=== PATIENT | male | born 1980 | race Caucasian/White ===

== ENCOUNTER 2018-01-30 11:02 | Emergency (ER) | payer OTHER ==
[2018-01-30 12:06] LABS: COLOR,URINE RED; GLUCOSE,URINE NEGATIVE (NEG); PROTEIN,URINE 100 mg/dL (NEG-TRACE)
[2018-01-30 12:12] LABS: ADD MAN DIFF? NO
[2018-01-30 12:15] LABS: BASO % 1 % (0-3); EOS % 0 % (0-3); HEMATOCRIT 41.4 % (39.0-53.0); LYMPH # 1.3 x10^3/uL (1.0-4.8); LYMPH % 15 % (24-48); MEAN CORPUSCULAR HEMOGLOBIN 31 pg (25-35); MEAN CORPUSCULAR HGB CONC 34 g/dL (31-37); MEAN CORPUSCULAR VOLUME 91 fL (79-100); MONO # 0.8 x10^3/uL (0.0-1.1); MONO % 9 % (0-9); NEUT # 6.8 x10^3uL (1.8-7.7); NEUT % 76 % (31-73); PLATELET COUNT 247 x10^3/uL (140-400); RED BLOOD COUNT 4.54 x10^6/uL (4.30-5.70); RED CELL DISTRIBUTION WIDTH 13.9 % (11.5-14.5); WHITE BLOOD COUNT 8.9 x10^3/uL (4.0-11.0)
[2018-01-30] MEDS: IV NORMAL SALINE 1000ML BAG 1,000 ML IV (12:21)
[2018-01-30 12:23] LABS: CLARITY,URINE BLOODY
[2018-01-30 12:24] LABS: BACTERIA,URINE 0 /HPF (0-FEW); RBC,URINE TNTC /HPF (0-2); WBC,URINE OCC /HPF (0-4)
[2018-01-30] MEDS: DICYCLOMINE 20 MG/2 ML AMPUL. IM (12:26)
[2018-01-30 12:27] LABS: ANION GAP 9 (6-14); BLOOD UREA NITROGEN 15 mg/dL (8-26); BUN/CREATININE RATIO 13 (6-20); CALCIUM 9.2 mg/dL (8.5-10.1); CARBON DIOXIDE 28 mmol/L (21-32); CHLORIDE 102 mmol/L (98-107); CREATININE 1.2 mg/dL (0.7-1.3); GFR 68.9; GLUCOSE 104 mg/dL (70-99); POTASSIUM 4.1 mmol/L (3.5-5.1); SODIUM 139 mmol/L (136-145)
[2018-01-30 12:30] LABS: ALBUMIN 3.7 g/dL (3.4-5.0); ALK PHOS 85 U/L (46-116); ALT (SGPT) 34 U/L (16-63); AST (SGOT) 27 U/L (15-37); LIPASE 89 U/L (73-393); TOTAL BILIRUBIN 0.4 mg/dL (0.2-1.0); TOTAL PROTEIN 7.4 g/dL (6.4-8.2)
== END 2018-01-30 13:08 | disposition home or self-care (01) ==
LOC: ER 11:02
DX: N20.0 Calculus of kidney (principal); F98.8 Other specified behavioral and emotional disorders with onset usually occurring in childhood and adolescence
CPT/HCPCS: 36415; 74176; 80053; 81001; 83690; 85025; 96372; 99285-25; J0500; J7030

== ENCOUNTER 2018-03-19 23:54 | Emergency (ER) | payer OTHER ==
[2018-03-20] MEDS: KETOROLAC 30 MG/ML INJ. IV ×2 (00:32)
[2018-03-20] MEDS: IV NORMAL SALINE 1000ML BAG 1,000 ML IV ×4 (00:34→02:48)
[2018-03-20 00:43] LABS: ADD MAN DIFF? NO
[2018-03-20 00:47] LABS: BASO % 0 % (0-3); EOS # 0.1 x10^3/uL (0.0-0.7); EOS % 1 % (0-3); HEMATOCRIT 40.5 % (39.0-53.0); HEMOGLOBIN 14.3 g/dL (13.0-17.5); LYMPH % 19 % (24-48); MEAN CORPUSCULAR HEMOGLOBIN 32 pg (25-35); MEAN CORPUSCULAR HGB CONC 35 g/dL (31-37); MEAN CORPUSCULAR VOLUME 89 fL (79-100); MONO # 1.2 x10^3/uL (0.0-1.1); MONO % 12 % (0-9); NEUT # 7.2 x10^3uL (1.8-7.7); NEUT % 68 % (31-73); PLATELET COUNT 233 x10^3/uL (140-400); RED BLOOD COUNT 4.54 x10^6/uL (4.30-5.70); RED CELL DISTRIBUTION WIDTH 13.5 % (11.5-14.5); WHITE BLOOD COUNT 10.5 x10^3/uL (4.0-11.0)
[2018-03-20 01:00] LABS: ANION GAP 10 (6-14); BLOOD UREA NITROGEN 20 mg/dL (8-26); CALCIUM 9.1 mg/dL (8.5-10.1); CARBON DIOXIDE 28 mmol/L (21-32); CHLORIDE 102 mmol/L (98-107); CREATININE 1.9 mg/dL (0.7-1.3); GFR 40.5; GLUCOSE 69 mg/dL (70-99); POTASSIUM 3.2 mmol/L (3.5-5.1); SODIUM 140 mmol/L (136-145)
[2018-03-20] MEDS: fentaNYL PF VIAL 100 MCG/2 ML VIAL IV ×4 (01:46→02:48)
[2018-03-20 02:36] LABS: BILIRUBIN,URINE NEGATIVE (NEG); CLARITY,URINE CLEAR; COLOR,URINE YELLOW; GLUCOSE,URINE NEGATIVE (NEG); NITRITE,URINE NEGATIVE (NEG); PROTEIN,URINE NEGATIVE (NEG-TRACE)
[2018-03-20 02:42] LABS: BACTERIA,URINE MOD /HPF (0-FEW); RBC,URINE TNTC /HPF (0-2); SQUAMOUS EPITHELIAL CELL,UR FEW /LPF; WBC,URINE >40 /HPF (0-4)
[2018-03-20] MEDS: TAMSULOSIN 0.4 MG CAP.ER.24H. PO ×2 (03:14)
[2018-03-20] MEDS: IV NORMAL SALINE 500ML BAG 500 ML IV ×2 (03:30)
[2018-03-20 04:47] LABS: AGAP ISTAT 16 mmol/L (6-14); BUN ISTAT 17 mg/dL (8-26); CHLORIDE ISTAT 105 mmol/L (98-110); CREATININE ISTAT 1.3 mg/dL (0.5-1.4); GLUCOSE ISTAT 105 mg/dL (70-99); HEMATOCRIT ISTAT 33 % (37-52); HEMOGLOBIN ISTAT 11.2 g/dL (14-18); ION CA ISTAT 1.02 mmol/L (1.13-1.32); POTASSIUM ISTAT 3.4 mmol/L (3.5-5.0); SODIUM ISTAT 142 mmol/L (135-145); TOT CO2 ISTAT 25 mmol/L (23-32)
== END 2018-03-20 05:05 | disposition home or self-care (01) ==
LOC: ER 23:54
DX: N13.2 Hydronephrosis with renal and ureteral calculous obstruction (principal); R10.32 Left lower quadrant pain (principal); F32.9 Major depressive disorder, single episode, unspecified; R00.0 Tachycardia, unspecified
CPT/HCPCS: 36415; 74176; 80047; 80048; 81001; 85025; 87086; 96365; 96375; 96376; 99285-25; J0690; J1885; J3010; J7030; J7040